=== PATIENT | male | born 1980 | race Caucasian/White ===

== ENCOUNTER 2020-02-03 21:07 | Emergency (ER) | payer SELFPAY ==
[2020-02-03] MEDS ORDERED: Lactated Ringers 1,000 ML IV ONE (21:08)
[2020-02-03] MEDS ORDERED: propofoL 100 ML ONE (21:29)
[2020-02-03] MEDS ORDERED: fentaNYL 100 MCG/2 ML SDV ONE (21:30)
[2020-02-03] MEDS ORDERED: Midazolam 1 MG/ML 5 ML SDV ONE (21:30)
[2020-02-03] MEDS ORDERED: Ketamine 500 mg/10 ML MDV ONE (21:30)
[2020-02-03] MEDS ORDERED: Succinylcholine 200 MG/10 ML MDV ONE (21:30)
[2020-02-03] MEDS ORDERED: Propofol 1,000 MG/100 ML SDV ONE (21:30)
[2020-02-03] MEDS ORDERED: Diphtheria,Pertussis(Acell),Tetanus Vaccine 0.5 ML Syringe IM ONE (21:30)
[2020-02-03] MEDS ORDERED: fentaNYL 2500 MCG/50 ML SDV ONE (21:30)
[2020-02-03] MEDS ORDERED: Sodium Chloride 0.9% 250 ML ONE (21:33)
[2020-02-03] MEDS ORDERED: Diphtheria/Tetanus Toxoids,Adult (Td) 0.5 ML Syringe ONE (21:39)
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
--- NOTE | 2020-02-04 11:17 | CT ---
CT cervical spine Technique: Multiple axial sections were obtained from above C1 inferiorly to the bottom of T1. Reconstructed sagittal and coronal images were reviewed. Comparison: No prior cervical spine imaging is available. Findings: Fracture is identified within the right lamina and apophyseal joint at C7. Minimal displacement is seen. The apophyseal joint on the right side at C6-7 appears perched. Fracture is noted within the pedicle as well as transverse process and apophyseal joint on the right side at C6. This fracture is slightly comminuted. Fracture extends into the vertebral foramina but no displaced fragment is seen into the vertebral foramina. No additional cervical spine fracture is seen. No abnormal subluxation is seen of the vertebral bodies. No bony central or bony neural foraminal stenosis is seen. Partially visualized nasogastric tube and endotracheal tube. Impression: 1. Fractures on the right side at C6 and C7 as described above. 2. Slight perching of the right apophyseal joint at C6-7. 3. No abnormal subluxation of the vertebral bodies is seen. Diagnostic code #5 This report was dictated in MDT I agree with preliminary report from [facility], finalized on 02/03/20, 11:49 PM Central Daylight Time
--- NOTE | 2020-02-04 11:17 | CT ---
Head CT Technique: Multiple axial sections through the brain were obtained. Intravenous contrast was not utilized. Comparison: No prior intracranial imaging is available. Findings: Ventricles along with basal cisterns and sulci over the convexities are within normal limits for the patient's age. No abnormal parenchymal densities are seen. No evidence of intracranial hemorrhage. No midline shift or mass-effect is seen. Bone window settings were reviewed. No acute calvarial abnormality is seen. Visualized paranasal sinuses and mastoid sinuses are clear. Partially visualized nasogastric tube is noted. Impression: 1. Nothing acute is appreciated on noncontrast head CT exam. Diagnostic code #2 This report was dictated in MDT I agree with preliminary report from [facility], finalized on 02/03/20, 11:40 PM Central Daylight Time
--- NOTE | 2020-02-04 11:48 | CT ---
CT thoracic spine Technique: Multiple axial sections through the thoracic spine was obtained. Reconstructed coronal and sagittal images were obtained. Findings: Partially visualized cervical spine fracture is noted within the lamina of C7. Mild scattered disc space narrowing and endplate osteophytes are seen within the thoracic spine. Mild degenerative apophyseal change is noted within the lower thoracic spine. Slight anterior wedging of T12 is seen which is most likely old. No acute fracture or abnormal subluxation is appreciated. Slightly sclerotic sternum is seen most likely representing an old healed or healing fracture. Impression: 1. Degenerative change as noted above. 2. Slight anterior wedging of T12 which I believe is old. 3. Healing or healed sternal fracture. 4. No acute fracture or other acute abnormality is appreciated. Diagnostic code #2 This report was dictated in MDT I agree with preliminary report from [facility], finalized on 02/04/20, 12:00 AM Central Daylight Time
--- NOTE | 2020-02-04 11:58 | CT ---
CT lumbar spine Technique: Multiple axial sections through the lumbar spine were obtained. Reconstructed coronal and sagittal images were reviewed. Comparison: No prior lumbar spine imaging. Findings: Vertebral body heights are maintained. Slight scattered posterior disc space narrowing is noted. No fracture is appreciated. No abnormal subluxation is seen. Minimal degenerative disc bulging is seen. Impression: 1. Nothing acute is appreciated on CT study of the lumbar spine. Diagnostic code #2 This report was dictated in MDT I agree with preliminary report from [facility], finalized on 02/03/20, 11:56 PM Central Daylight Time
--- NOTE | 2020-02-04 11:59 | CT ---
CT chest Technique: Multiple axial sections through the chest were obtained. Intravenous contrast was utilized. Endotracheal tube is noted which terminates above the [place]. Nasogastric tube terminates within the stomach. Parenchymal density is noted within the posterior lungs on both sides. No pleural effusions are seen. No pneumothorax is identified. No acute osseous finding is appreciated. Impression: 1. Satisfactory position of endotracheal tube and nasogastric tube. 2. Areas of increased density posteriorly within both lung bases. Findings most likely due to atelectasis although pulmonary contusion or change from aspiration is also within the differential. 3. Nothing acute is otherwise seen Diagnostic code #3 This report was dictated in MDT I agree with preliminary report from [facility], finalized on 02/03/20, 11:48 [address] [place] Day[place] Time CT abdomen and pelvis Technique: Multiple axial sections were obtained from above the dome of the diaphragm inferiorly through the pubic symphysis. Intravenous contrast was utilized. No oral contrast has been given. Delayed images were obtained through the bladder. Comparison: No prior abdominal or pelvic CT exam is available. Findings: Liver shows fatty infiltration without focal abnormality. Low density noted within the spleen felt compatible with splenic contusion and laceration. Findings felt compatible with a grade 2 injury. Adrenal glands appear unremarkable. Kidneys show symmetric contrast enhancement and appear unremarkable. Pancreas is within normal limits. Gallbladder contains no calcified gallstones. Aorta shows no aneurysm. No retroperitoneal adenopathy or mesenteric abnormalities are seen. No pelvic mass or adenopathy is seen. Appendix is seen which is normal in size. No free fluid or inflammatory change is seen. Bone window settings were reviewed which shows a fracture within the proximal femoral shaft which is comminuted and displaced. No other acute osseous finding is appreciated. Impression: 1. Proximal right femoral shaft fracture with comminution and displacement. 2. Mild splenic contusion and laceration compatible with grade 2 injury. 3. No other acute finding is appreciated on CT study of the abdomen and pelvis. Diagnostic code #5 This report was dictated in MDT I agree with preliminary report from [facility], finalized on 01/27, 11:54 PM Central Daylight Time
== END 2020-02-03 23:00 ==
LOC: JD.ED 21:07 → EDBD 21:07 → JD.ED 23:00
DX: S06.0X9A Concussion with loss of consciousness of unspecified duration, initial encounter (principal); S12.500A Unspecified displaced fracture of sixth cervical vertebra, initial encounter for closed fracture; S12.600A Unspecified displaced fracture of seventh cervical vertebra, initial encounter for closed fracture; S72.91XA Unspecified fracture of right femur, initial encounter for closed fracture; S01.312A Laceration without foreign body of left ear, initial encounter; S36.039A Unspecified laceration of spleen, initial encounter; S90.122A Contusion of left lesser toe(s) without damage to nail, initial encounter; S90.32XA Contusion of left foot, initial encounter; S70.11XA Contusion of right thigh, initial encounter; V89.0XXA Person injured in unspecified motor-vehicle accident, nontraffic, initial encounter
CPT/HCPCS: 31500; 36415; 51702; 70450; 71260; 72125; 72128; 72131; 74177; 80053; 80306; 80307; 81001; 82150; 85025; 85610; 85730; 86850; 86900; 86901; 90715; 99285; J0330; J2250; J2704; J3010; J7120